=== PATIENT | female | born 1945 | race Caucasian/White ===

== ENCOUNTER 2022-05-24 12:23 | Outpatient (NON) | payer OTHER, SELFPAY ==
[2022-05-24 12:43] LABS: Appearance Urine Clear (Clear); Bilirubin Urine Negative (Negative); Blood Urine Negative (Negative); Color Urine Yellow (Yellow); Glucose Urine UA Negative (Negative); Ketones Urine Negative (Negative); Leukocyte Esterase Ur Trace LEU/UL (Negative); Nitrate Urine Negative (Negative); Protein Urine Negative (Negative); Specific Grav Ur 1.015 (1.010-1.020); pH Urine 7.5 (5.0-8.0)
[2022-05-24 12:50] LABS: Add Urine Microscopic? YES; RBC Urine None seen /hpf (0-2)
[2022-05-24 12:51] LABS: Bacteria Urine Rare /hpf; Squamous Epithelial Cell Urine Rare /hpf (Few); WBC Urine 0-3 /hpf (0-3)
== END 2022-05-24 12:24 | disposition home or self-care (01) ==
LOC: CHSLAB 12:28
PROVIDERS: Visit Provider Family Medicine
DX: R35.0 Frequency of micturition (principal)
CPT/HCPCS: 81001

== ENCOUNTER 2022-08-16 16:39 | Inpatient (IN) | payer OTHER, SELFPAY ==
[2022-08-16 17:07] VITALS: BP 143/98; PULSE 103; RESP 18; TEMP 36.6; O2SAT 93
--- NOTE | 2022-08-16 17:10 | ADMGEN ---
This patient, Bella Kenny, was admitted to 2nd Floor Room 207-2. Patient/family oriented to hospital policies and general routines including ID bracelet, bed and alarms, visiting hours, pain management, procedures, bathroom and other care routines, personal items, smoking policy, room service/diet, and visiting hours. Information on how to activate the Rapid Response Team has been discussed. Patient/Family are encouraged to report perceived risks to care and to ask questions if they do not understand what they are told or what they should do.
[2022-08-16 17:12] VITALS: BMI 18.9
[2022-08-16 17:14] VITALS: BP 143/98; PULSE 103; RESP 18; TEMP 36.6; O2SAT 93; BMI 18.9
[2022-08-16 20:00] VITALS: PULSE 103; RESP 18; O2SAT 93
[2022-08-16] MEDS: LORazepam (*CRX) 1 MG TABLET PO (20:44)
[2022-08-16] MEDS: SALMET XINAFT/FLUTIC PROPIN 500 MCG/50 MCG INH CAP 1 PUFF INHALATION (20:44)
[2022-08-17] VITALS: BP 133/84; PULSE 99; RESP 18; TEMP 36.1; O2SAT 92
[2022-08-17] MEDS: SALMET XINAFT/FLUTIC PROPIN 500 MCG/50 MCG INH CAP 1 PUFF INHALATION ×2 (06:17→17:40)
[2022-08-17 07:45] VITALS: BP 157/95; PULSE 90; RESP 16; TEMP 36.3; O2SAT 92
[2022-08-17] MEDS: polyethylene glycoL 3350 17 GM POWD.PACK PO (08:04)
[2022-08-17] MEDS: LOSARTAN POTASSIUM 25 MG TABLET PO (08:05)
[2022-08-17] MEDS: LORazepam (*CRX) 1 MG TABLET PO ×2 (08:05→17:40)
[2022-08-17] MEDS: HYDROcodone/acetaminophen (*CRX) 7.5-325 MG TABLET 1 TAB PO ×3 (08:05→21:05)
--- NOTE | 2022-08-17 08:27 | PM.IMHP ---
H&P: HPI History of Present Illness Date/Time: 08/17/22 08:27 Chief Complaint: Weakness, Narrative: Bella Kenny was with comminuted displaced nonarticular fracture of the left Iliac. Bella Kenny?is a 77-year-old?female?with a history of COPD, CAD, hypertension, dementia??She uses a walker and was ambulatory at her assisted living facility until this incident and has now been wheelchair bound due to pain and discomfort. ?Patient was initially refusing participation with PT/OT due to pain. Patient was medicated accordingly for pain and she is participating with 2ww for STS and short ambulation. Patient does continue to ambulate with physical therapy, she is progressing towards her goals but still lacks full functional independence, patient has been accepted to [facility] where our goal is to get her back to her baseline and ready for discharge to Assisted living. Review of Systems Review of Systems: hip pain, pelvic pain weakness All systems reviewed & are unremarkable except as noted in HPI and below PMFSH Past Medical History Medical History (Updated 08/17/22 @ 14:08 by Jayshree Sousa NP) CAD (coronary artery disease) COPD (chronic obstructive pulmonary disease) Hypertension Pelvic fracture Weakness Family History Family History Mother Dementia Social History Social History Smoking packs per day: 2 Smoking cigarettes per day: 40.0 Years smoked: 60 Smoking pack-years: 120.00 Smoking status: Former smoker Tobacco type: cigarettes Second hand tobacco smoke exposure: Yes Smoking end date: 06/24/22 Alcohol intake: former Substance use: current Substance use type: prescription drug Lack of Transportation: No Lack of Food: Never True Current Housing: I Have Housing Concerned About Future Housing: No Difficulty Paying Gas/Electric Bills: No Difficulty Paying for Meds: No Currently Unemployed: No Education: High School Diploma/GED Difficulty w/ Childcare or Family Care: No Spiritual care concerns: No Meds Home Medications and Allergies Home Medications Medication Instructions Recorded Confirmed Type fluticasone 500 mcg-salmeterol 50 1 inh inhalation Q12H 08/16/22 08/16/22 History mcg/dose blistr powdr for inhalation hydrocodone 7.5 mg-acetaminophen 1 tablet PO Q6H PRN Pain (Scale 08/16/22 08/16/22 History 325 mg tablet Score 5-10) ibuprofen 600 mg tablet 600 mg PO Q6H PRN Pain (Scale 08/16/22 08/16/22 History Score 1-4) lidocaine 4 % topical patch 1 patch topical BID PRN Muscle Pain 08/16/22 08/16/22 History (Lidocaine Pain Relief) lorazepam 1 mg tablet 1 mg PO BID 08/16/22 08/16/22 History losartan 25 mg tablet 25 mg PO DAILY 08/16/22 08/16/22 History polyethylene glycol 3350 17 gram 17 g PO DAILY 08/16/22 08/16/22 History oral powder packet (Miralax) trolamine salicylate 10 % topical 1 applic topical TID PRN arthritis 08/16/22 08/16/22 History cream (Aspercreme) pain Allergies Allergy/AdvReac Type Severity Reaction Status Date / Time No Known Allergies Allergy Verified 08/16/22 16:46 Vital Signs Vital Signs - 24 hr 08/16/22 17:07 08/16/22 20:00 08/17/22 00:00 Temperature 98 F 96.9 F L Pulse Rate 103 H 103 H 99 Respiratory Rate 18 18 18 Blood Pressure 143/98 H 133/84 Pulse Oximetry 93 93 92 Oxygen Delivery Room Air Room Air Room Air 08/17/22 07:45 08/16/22 17:14 Temperature 97.3 F L 98 F Pulse Rate 90 103 H Respiratory Rate 16 18 Blood Pressure 157/95 H 143/98 H Pulse Oximetry 92 93 Oxygen Delivery Room Air Room Air Exam Const: General: comfortable HENMT: Mouth: Yes moist mucous membranes Eyes: General: appearance normal, both eyes and all related structures Pupils: Equal, round and reactive pupils present Cardio: Rate: regular rate GI: GI Palp: Yes Soft to
[2022-08-17 16:30] VITALS: BP 138/80; PULSE 99; RESP 16; TEMP 36.4; O2SAT 97
[2022-08-17] MEDS: ARTIFICIAL TEARS OPHTH SOLN 15 ML BOTTLE 1 DROP EACH EYE (17:39)
[2022-08-17] MEDS: IBUPROFEN 600 MG TABLET PO (20:10)
--- NOTE | 2022-08-17 20:27 | PC.NURSE ---
Pt stated she was hungry. This RN brought the pt a ham sandwich w/a miracle whip packet. Pt ate 50% of the sandwich and requested to eat the rest later. Pt is a&ox3 at this time and cooperative. Bed in lowest position; bed alarm on; located near nurses station; call light w/in reach for pt safety.
[2022-08-17] MEDS: traZODone HCL 50 MG TABLET PO (21:05)
[2022-08-17 23:02] VITALS: BP 103/59; PULSE 85; RESP 15; TEMP 36.3; O2SAT 96
[2022-08-18] MEDS: SALMET XINAFT/FLUTIC PROPIN 500 MCG/50 MCG INH CAP 1 PUFF INHALATION ×2 (06:01→17:10)
[2022-08-18 07:50] VITALS: BP 146/86; PULSE 92; RESP 16; TEMP 36.3; O2SAT 97
[2022-08-18] MEDS: polyethylene glycoL 3350 17 GM POWD.PACK PO (08:09)
[2022-08-18] MEDS: HYDROcodone/acetaminophen (*CRX) 7.5-325 MG TABLET 1 TAB PO ×2 (08:09→17:09)
[2022-08-18] MEDS: LORazepam (*CRX) 1 MG TABLET PO ×2 (08:09→17:09)
[2022-08-18] MEDS: LOSARTAN POTASSIUM 25 MG TABLET PO (08:09)
[2022-08-18] MEDS: IBUPROFEN 600 MG TABLET PO (12:09)
[2022-08-18 16:00] VITALS: BP 135/32; PULSE 90; RESP 16; TEMP 36.4; O2SAT 97
[2022-08-18 19:51] VITALS: PULSE 84; RESP 20; O2SAT 96
[2022-08-18 23:53] VITALS: BP 117/69; PULSE 82; RESP 16; TEMP 36.2; O2SAT 93
[2022-08-19] MEDS: SALMET XINAFT/FLUTIC PROPIN 500 MCG/50 MCG INH CAP 1 PUFF INHALATION ×2 (06:08→17:27)
[2022-08-19] MEDS: HYDROcodone/acetaminophen (*CRX) 7.5-325 MG TABLET 1 TAB PO ×2 (06:08→12:05)
--- NOTE | 2022-08-19 06:08 | PC.NURSE ---
norco given for pain wtih movement, stated 01/02 while up to commode, left groin/pelvic region
[2022-08-19 07:41] VITALS: BP 148/76; PULSE 86; RESP 16; TEMP 36.4; O2SAT 94
[2022-08-19] MEDS: polyethylene glycoL 3350 17 GM POWD.PACK PO (08:57)
[2022-08-19] MEDS: LORazepam (*CRX) 1 MG TABLET PO ×2 (08:58→17:24)
[2022-08-19] MEDS: LOSARTAN POTASSIUM 25 MG TABLET PO (08:58)
[2022-08-19] MEDS: IBUPROFEN 600 MG TABLET PO ×2 (11:09→19:16)
--- NOTE | 2022-08-19 11:19 | PC.NURSE ---
PRN ibuprofen given prior to PT. [place] not due until 1206
[2022-08-19 16:00] VITALS: BP 140/90; PULSE 90; RESP 16; TEMP 36.3; O2SAT 94
[2022-08-19] MEDS: traZODone HCL 50 MG TABLET PO (19:32)
[2022-08-19 20:00] VITALS: PULSE 90; RESP 16; O2SAT 94
[2022-08-20] VITALS: BP 128/83; PULSE 93; RESP 16; TEMP 36.1; O2SAT 99
[2022-08-20] MEDS: SALMET XINAFT/FLUTIC PROPIN 500 MCG/50 MCG INH CAP 1 PUFF INHALATION ×2 (05:32→18:11)
[2022-08-20] MEDS: IBUPROFEN 600 MG TABLET PO ×2 (05:33→16:20)
[2022-08-20 08:00] VITALS: BP 145/90; PULSE 95; RESP 18; TEMP 36.4; O2SAT 96
[2022-08-20] MEDS: HYDROcodone/acetaminophen (*CRX) 7.5-325 MG TABLET 1 TAB PO ×2 (08:21→14:49)
[2022-08-20] MEDS: LOSARTAN POTASSIUM 25 MG TABLET PO (08:22)
[2022-08-20] MEDS: polyethylene glycoL 3350 17 GM POWD.PACK PO (08:22)
--- NOTE | 2022-08-20 15:34 | PC.NURSE ---
collected urine-clean catch due to frequency
[2022-08-20 16:00] VITALS: BP 156/90; PULSE 94; RESP 18; TEMP 36.4; O2SAT 93
[2022-08-20 16:03] LABS: Appearance Urine Clear (Clear); Bilirubin Urine Negative (Negative); Blood Urine Negative (Negative); Color Urine Light Yellow (Yellow); Glucose Urine UA Negative (Negative); Ketones Urine Negative (Negative); Leukocyte Esterase Ur Trace (Negative); Nitrate Urine Negative (Negative); Protein Urine Negative (Negative); Urobilinogen Urine 0.2 mg/dL (0.2-1.0); pH Urine 7.5 (5.0-8.0)
[2022-08-20] MEDS: LORazepam (*CRX) 1 MG TABLET PO ×2 (16:19→16:20)
[2022-08-20] MEDS: LIDOCAINE 5% PATCH 1 PATCH TRANSDERM (16:21)
[2022-08-20 16:26] LABS: Add Urine Microscopic? YES; Squamous Epithelial Cell Urine Occasional /hpf (Few); WBC Urine None seen /hpf (0-3)
[2022-08-20] MEDS: traZODone HCL 50 MG TABLET PO (19:54)
[2022-08-20 20:00] VITALS: PULSE 94; RESP 18; O2SAT 93
[2022-08-21] VITALS: BP 148/92; PULSE 84; RESP 16; TEMP 36.1; O2SAT 93
[2022-08-21] MEDS: IBUPROFEN 600 MG TABLET PO (05:23)
[2022-08-21] MEDS: SALMET XINAFT/FLUTIC PROPIN 500 MCG/50 MCG INH CAP 1 PUFF INHALATION ×2 (05:24→18:19)
[2022-08-21 08:00] VITALS: BP 168/95; PULSE 108; RESP 18; TEMP 36.3; O2SAT 92
[2022-08-21] MEDS: HYDROcodone/acetaminophen (*CRX) 7.5-325 MG TABLET 1 TAB PO ×2 (08:45→16:42)
[2022-08-21] MEDS: LOSARTAN POTASSIUM 25 MG TABLET PO (08:45)
[2022-08-21] MEDS: LORazepam (*CRX) 1 MG TABLET PO ×2 (08:45→16:42)
[2022-08-21] MEDS: polyethylene glycoL 3350 17 GM POWD.PACK PO (08:45)
[2022-08-21 16:00] VITALS: BP 177/92; PULSE 109; RESP 18; TEMP 36.4; O2SAT 92
--- NOTE | 2022-08-21 16:45 | PC.NURSE ---
Pt calling out repeatedly hotel recreational facilities manager light requesting the furniture be rearranged before supper. Charge nurse went to patients room where she assisted patient to chair. Patient refused the bathroom at that time. Pt called 2 minutes later asking to go to bathroom. Pt escorted to bathroom with minimal assistance. PT demanded to go to bed after going to the bathroom. This nurse educated pt on rehab and the importance of sitting up for meals. Pt reluctantly went to the chair. Pt demanded to go back to the bed by screaming out. This nurse is currently sitting with patient where she is stating that if I leave the room that she will get up from the chair and if she falls it will be my fault.
[2022-08-21] MEDS: traZODone HCL 50 MG TABLET PO (20:48)
[2022-08-22] VITALS: BP 132/78; PULSE 79; RESP 16; TEMP 36.2; O2SAT 95
[2022-08-22] MEDS: SALMET XINAFT/FLUTIC PROPIN 500 MCG/50 MCG INH CAP 1 PUFF INHALATION ×2 (05:59→18:31)
[2022-08-22] MEDS: HYDROcodone/acetaminophen (*CRX) 7.5-325 MG TABLET 1 TAB PO ×3 (07:48→21:02)
[2022-08-22 08:00] VITALS: BP 144/89; PULSE 96; RESP 14; TEMP 36.4; O2SAT 96
[2022-08-22] MEDS: LOSARTAN POTASSIUM 25 MG TABLET PO (08:17)
[2022-08-22] MEDS: polyethylene glycoL 3350 17 GM POWD.PACK PO (08:17)
[2022-08-22] MEDS: LORazepam (*CRX) 1 MG TABLET PO ×2 (08:17→16:35)
[2022-08-22] MEDS: IBUPROFEN 600 MG TABLET PO ×2 (11:09→16:35)
[2022-08-22 16:00] VITALS: BP 169/90; PULSE 89; RESP 16; TEMP 36.6; O2SAT 96
--- NOTE | 2022-08-22 18:32 | PC.NURSE ---
Patient has turned bed alarm off x2 Charge nurse aware
[2022-08-22] MEDS: traZODone HCL 50 MG TABLET PO (21:03)
[2022-08-22 23:33] VITALS: BP 147/87; PULSE 88; RESP 16; TEMP 36.7; O2SAT 94
[2022-08-23] MEDS: HYDROcodone/acetaminophen (*CRX) 7.5-325 MG TABLET 1 TAB PO ×3 (03:46→20:51)
[2022-08-23] MEDS: SALMET XINAFT/FLUTIC PROPIN 500 MCG/50 MCG INH CAP 1 PUFF INHALATION ×2 (05:35→17:22)
[2022-08-23 07:40] VITALS: BP 147/99; PULSE 98; RESP 18; TEMP 36.2; O2SAT 95
[2022-08-23] MEDS: IBUPROFEN 600 MG TABLET PO (08:12)
[2022-08-23] MEDS: LORazepam (*CRX) 1 MG TABLET PO ×2 (08:12→17:23)
[2022-08-23] MEDS: LOSARTAN POTASSIUM 25 MG TABLET PO (08:12)
[2022-08-23] MEDS: polyethylene glycoL 3350 17 GM POWD.PACK PO (08:12)
[2022-08-23 16:30] VITALS: BP 147/95; PULSE 93; RESP 18; TEMP 36.6; O2SAT 96
[2022-08-23] MEDS: traZODone HCL 50 MG TABLET PO (20:51)
[2022-08-24] VITALS: BP 113/62; PULSE 94; RESP 18; TEMP 36.4; O2SAT 94
[2022-08-24] MEDS: HYDROcodone/acetaminophen (*CRX) 7.5-325 MG TABLET 1 TAB PO ×2 (02:51→15:21)
[2022-08-24] MEDS: SALMET XINAFT/FLUTIC PROPIN 500 MCG/50 MCG INH CAP 1 PUFF INHALATION ×2 (05:54→18:05)
[2022-08-24 07:58] VITALS: BP 140/81; PULSE 86; RESP 14; TEMP 36.2; O2SAT 97
[2022-08-24] MEDS: polyethylene glycoL 3350 17 GM POWD.PACK PO (08:16)
[2022-08-24] MEDS: LOSARTAN POTASSIUM 25 MG TABLET PO (08:17)
[2022-08-24] MEDS: LORazepam (*CRX) 1 MG TABLET PO ×2 (08:17→16:55)
--- NOTE | 2022-08-24 10:36 | PM.IMPN ---
Progress Note: A&P Assessment and Plan (1) Pelvic fracture: Code(s): S32.9XXA - Fracture of unspecified parts of lumbosacral spine and pelvis, initial encounter for closed fracture Status: Acute Assessment and Plan: Patient continues to work with therapy and is doing very well. At this point time patient will be ready for discharge hopefully tomorrow to her assisted living and will receive therapy at her assisted living. (2) Hypertension: Code(s): I10 - Essential (primary) hypertension Status: Acute Assessment and Plan: Will continue current medications and adjust medications accordingly for optimal blood pressure control. (3) COPD (chronic obstructive pulmonary disease): Code(s): J44.9 - Chronic obstructive pulmonary disease, unspecified Status: Acute Assessment and Plan: COPD is stable at this time will continue with current MDI. (4) Weakness: Code(s): R53.1 - Weakness Status: Acute Assessment and Plan: Patient continues to work with physical therapy is progressing well. Possible discharge back to assisted living with home health therapy tomorrow. Subjective Date/time seen: 08/24/22 10:36 Interval history: Patient lying in bed without any complaints. Patient states she is just watching TV and waiting for discharge back to her assisted living tomorrow. Patient denies any pain at this time. Patient denies any shortness of breath, chest pain, lightheadedness, or dizziness. Exam Narrative: Constitutional: Patient is well-nourished in no acute distress. Patient is alert and oriented x3 HEENT: Moist mucous membranes. No scleral icterus. No lymphadenopathy. Neck: No carotid bruits noted no JVD noted Lungs: Lung sounds are clear to auscultation bilaterally. No accessory muscle use. No rhonchi, rales, or wheezes noted. Cardiovascular: Apical pulse is regular rate and rhythm. S1-S2 noted, no S3 or S4 noted. No gallops, murmurs, or rubs noted. Abdomen: Soft, round, and nontender. No palpable masses. Extremities: No edema. Nontender. Skin: No rashes or lesions. Warm and dry. Skin is intact. Neurological: No focal neurological deficits. Cranial nerves II-XII grossly intact. Psychiatric: Cooperative, appropriate mood, and affect Objective Data Vital Signs Vital Signs: Vital Signs - 24 hr 08/23/22 16:30 08/24/22 00:00 08/24/22 07:58 Temperature 36.6 C 36.4 C L 36.2 C L Pulse Rate 93 94 86 Respiratory Rate 18 18 14 Blood Pressure 147/95 H 113/62 140/81 Pulse Oximetry 96 94 97 Oxygen Delivery Room Air Room Air Room Air Intake/Output Intake/Output: Intake & Output 08/21/22 08/22/22 08/23/22 08/24/22 23:59 23:59 23:59 23:59 Intake Total 1170 1390 1370 860 Output Total 1350 Balance -180 1390 1370 860 Meds/Results Medications: Active Medications Generic Name Dose Route Start Last Admin Trade Name Freq PRN Reason Stop Dose Admin Hydrocodone Bitart/Acetaminophen 1 tab 08/16/22 19:59 08/24/22 02:51 Hydrocodone/Acetaminophen (*Crx) 7.5-325 Mg Tablet PO 1 tab Q6H PRN Administration Pain (Scale Score 5-10) Artificial Tears 1 drop 08/17/22 16:24 08/17/22 17:39 Artificial Tears Ophth Soln 15 Ml Bottle EACH EYE 1 drop QID PRN Administration Dry Eye(s) Ibuprofen 600 mg 08/16/22 19:59 08/23/22 08:12 Ibuprofen 600 Mg Tablet PO 600 mg Q6H PRN Administration Pain (Scale Score 1-4) Lidocaine 1 patch 08/17/22 09:00 08/20/22 16:21 Lidocaine 5% Patch TRANSDERM 1 patch DAILY PRN Administration MUSCLE PAIN Lorazepam 1 mg 08/16/22 17:00 08/24/22 08:17 Lorazepam (*Crx) 1 Mg Tablet PO 1 mg BID ENMA Administration Losartan Potassium 25 mg 08/17/22 09:00 08/24/22 08:17 Losartan Potassium 25 Mg Tablet PO 25 mg DAILY ENMA Administration Polyethylene Glycol 17 gm 08/17/22 09:00 08/24/22 08:16 Polyethylene Glycol 3350 17 Gm Powd.Pack
--- NOTE | 2022-08-24 15:21 | PC.NURSE ---
Patient demanded to be put back to bed immediately after dinner. Patient was still chewing food when literary writer answered her light. Brickmason Apprentice attempted to educate patient on her need to stay up for a little while after dinner, and patient became verbally aggressive and used the B word to literary writer. Brickmason Apprentice assisted patient to bed.
--- NOTE | 2022-08-24 15:38 | PC.NURSE ---
Patient c/o pain in L leg. Oil Distributor administered pain medication and patient is resting in bed with leg elevated.
[2022-08-24 16:00] VITALS: BP 151/91; PULSE 89; RESP 16; TEMP 36.5; O2SAT 95
[2022-08-24 20:00] VITALS: PULSE 89; RESP 16; O2SAT 95
[2022-08-24] MEDS: traZODone HCL 50 MG TABLET PO (20:05)
[2022-08-25] VITALS: BP 136/80; PULSE 87; RESP 14; TEMP 36.1; O2SAT 93
[2022-08-25] MEDS: SALMET XINAFT/FLUTIC PROPIN 500 MCG/50 MCG INH CAP 1 PUFF INHALATION (06:00)
[2022-08-25] MEDS: HYDROcodone/acetaminophen (*CRX) 7.5-325 MG TABLET 1 TAB PO ×2 (07:23→16:07)
[2022-08-25 07:35] VITALS: BP 159/98; PULSE 96; RESP 18; TEMP 36.2; O2SAT 97
[2022-08-25] MEDS: LOSARTAN POTASSIUM 25 MG TABLET PO (08:25)
[2022-08-25] MEDS: LORazepam (*CRX) 1 MG TABLET PO ×2 (08:25→16:07)
[2022-08-25] MEDS: polyethylene glycoL 3350 17 GM POWD.PACK PO (08:25)
--- NOTE | 2022-08-25 10:41 | PM.DS ---
DS: Admitting Diagnosis Discharge Date 08/25/2022 Admitting Diagnosis Weakness with comminuted displaced non articular fracture of left iliac crest DS: Discharge Diagnosis Discharge Diagnosis (1) Pelvic fracture: Qualifiers: Encounter type: sequela Pelvic bone location: ilium Fracture type: closed Fracture morphology: unspecified fracture morphology Fracture alignment: displaced Laterality: left Qualified Code(s): S32.302S - Unspecified fracture of left ilium, sequela Code(s): S32.9XXA - Fracture of unspecified parts of lumbosacral spine and pelvis, initial encounter for closed fracture Status: Acute Assessment and Plan: Patient has received PT / OT throughout hospitalization. Patient will be discharged to her assisted living with home health PT /OT to come evaluate and treat secondary fracture she is unable to leave the assisted living. (2) Weakness: Code(s): R53.1 - Weakness Status: Acute Assessment and Plan: Secondary to #1. (3) Hypertension: Qualifiers: Hypertension type: primary hypertension Qualified Code(s): I10 - Essential (primary) hypertension Code(s): I10 - Essential (primary) hypertension Status: Acute Assessment and Plan: Will continue with patient's current medications. Patient will only be followed as an outpatient by primary care for any medication adjust adjustments for optimal blood pressure control. DS: Summary Hospital Course Reason for hospitalization: Weakness after pelvic fracture Hospital Course: Ms. Kenny is a 77-year-old female who presented to this establishment for rehabilitation from PT / OT after having a pelvic fracture. Prior to patient's pelvic fracture patient had been ambulatory with a walker at her assisted living and then post fracture patient was wheelchair bound due to pain. Initially patient was refusing any physical therapy or occupational therapy secondary to the pain. Patient then began to receive pain medication and she began to participate with therapy. Patient has been ambulating short distances and doing well. At this point in time patient is ready for discharge back to her assisted living facility, but she will need to continue with home health physical therapy and occupational therapy to return to baseline. Patient is unable to leave the assisted living to have outpatient therapy so home health will be coming to her assisted living. Patient will need to follow up with her primary care provider for any further recommendations regarding medications. Patient will be sent with a prescription for pain medication. At this time patient is ready for discharge and is excited to return back to her assisted living. Status at Discharge Cognitive/behavioral status at discharge: Stable and improved Time Spent with Patient Time attestation: Total time spent providing and/or coordinating discharge services: 30 minutes Exam Narrative: Constitutional: Patient is well-nourished in no acute distress. Patient is alert and oriented x3 HEENT: Moist mucous membranes. No scleral icterus. No lymphadenopathy. Neck: No carotid bruits noted no JVD noted Lungs: Lung sounds are clear to auscultation bilaterally. No accessory muscle use. No rhonchi, rales, or wheezes noted. Cardiovascular: Apical pulse is regular rate and rhythm. S1-S2 noted, no S3 or S4 noted. No gallops, murmurs, or rubs noted. Abdomen: Soft, round, and nontender. No palpable masses. Extremities: No edema. Nontender. Skin: No rashes or lesions. Warm and dry. Skin is intact. Neurological: No focal neurological deficits. Cranial nerves II-XII grossly intact. Psychiatric: Cooperative, appropriate mood, and affect Discharge Plan Discharge Attending physician on discharge: Dakotah Wilkerson Discharging Clinician: Kika Garcia Anticipated Discharge Date/Time: 08/25/22 15:20 Patient Disposition: Home Health S
--- NOTE | 2022-08-25 16:15 | PC.NURSE ---
Patient aware she is discharging back to the [facility]. Discharge instructions and education reviewed with patient and patients daughter. Both parties state understanding. Patient had no IV at time of discharge. All belongings gathered and sent home with patient. Home medications returned. Patient left floor via wheelchair accompanied by this nurse, left via private vehicle with daughter. Denies any questions at discharge.
--- NOTE | 2022-08-29 12:55 | PC.NURSE ---
Unable to contact for discharge call back.
== END 2022-08-25 16:15 | disposition home health service (06) | DRG 561 ==
PROVIDERS: Nurse Practitioner; Admitting Provider Internal Medicine; PCP Family Medicine; Visit Provider Nurse Practitioner Adult Health
DX: S32.302D Unspecified fracture of left ilium, subsequent encounter for fracture with routine healing (principal); J44.9 Chronic obstructive pulmonary disease, unspecified; I10 Essential (primary) hypertension; I25.10 Atherosclerotic heart disease of native coronary artery without angina pectoris; F03.90 Unspecified dementia, unspecified severity, without behavioral disturbance, psychotic disturbance, mood disturbance, and anxiety; Z87.891 Personal history of nicotine dependence
CPT/HCPCS: 81001; 97110; 97116; 97161; 97165; 97530; 97535; A9270

== ENCOUNTER 2022-10-02 17:17 | Outpatient (NON) | payer OTHER, SELFPAY ==
[2022-10-02 17:59] LABS: Basophils Absolute Auto 0.04 K/mm3 (0.00-0.10); Basophils Percent Auto 0.6 % (0.0-1.0); Eosinophils Absolute Auto 0.05 K/mm3 (0.02-0.50); Eosinophils Percent Auto 0.8 % (1.0-6.0); Hematocrit 35.7 % (35.0-42.0); Hemoglobin 11.9 g/dL (11.7-13.8); Immature Granulocyte Percent A 1.5 % (0.0-0.0); Lymphocytes Absolute Auto 1.94 K/mm3 (1.10-4.50); Lymphocytes Percent Auto 29.7 % (18.0-42.0); Mean Corpuscular HGB Conc 33.3 g/dL (32.0-36.0); Mean Corpuscular Hemoglobin 32.2 pg (27.0-31.0); Mean Corpuscular Volume 96.7 fL (78.0-102.0); Mean Platelet Volume 9.6 fl (9.2-11.8); Monocytes Absolute Auto 0.55 K/mm3 (0.10-0.90); Monocytes Percent Auto 8.4 % (2.0-11.0); Neutrophils Absolute Auto 3.9 K/mm3 (1.7-7.2); Platelet Count Result 329 K/mm3 (150-420); Red Blood Count 3.69 M/mm3 (4.20-5.40); Red Cell Distribution Width 14.1 % (11.6-14.4); White Blood Count 6.5 K/mm3 (4.8-10.8)
[2022-10-02 18:17] LABS: Alanine Aminotransferase 92 U/L (14-59); Albumin Level 3.9 g/dL (3.4-5.0); Alkaline Phosphatase 208 U/L (46-116); Anion Gap 11 mmol/L (8-16); Aspartate Amino Transferase 87 U/L (15-37); Bilirubin,Total 0.3 mg/dL (0.00-1.00); Blood Urea Nitrogen 9 mg/dL (7-18); Carbon Dioxide 28 mmol/L (21-32); Chloride 91 mmol/L (98-108); Estimated Glomerular Filt Rate > 60; Free T4 Free Thyroxine 0.96 ng/dL (0.76-1.46); Glucose 104 mg/dL (70-99); Osmolality Calculated 268 mOsm/kg (285-295); Potassium 4.6 mmol/L (3.5-5.1); Sodium 130 mmol/L (136-145); Thyroid Stimulating Hormone 2.27 uIU/mL (0.36-3.74); Total Protein 6.8 g/dL (6.4-8.2)
[2022-10-07 05:57] LABS: Total Triiodothyronine (T3) 123.6 ng/dL (76-181)
== END 2022-10-02 17:18 | disposition home or self-care (01) ==
LOC: CHSLAB 17:19
PROVIDERS: Visit Provider Family Medicine
DX: R63.4 Abnormal weight loss (principal); R30.0 Dysuria
CPT/HCPCS: 36415; 80053; 84439; 84443; 84480; 85025

== ENCOUNTER 2022-10-04 13:24 | Outpatient (NON) | payer OTHER, SELFPAY | END 2022-10-04 13:25 | disposition home or self-care (01) | LOC: CHSLAB 13:25 | PROVIDERS: Visit Provider Family Medicine | DX: R63.4 Abnormal weight loss (principal); R30.0 Dysuria | CPT/HCPCS: 87086; 87088 ==